=== PATIENT | female | born 1955 | race Hispanic/Latino ===

== ENCOUNTER → 2020-12-11 | Outpatient (CLI) | payer MEDICARE | LOC: MAMMO 13:31 | PROVIDERS: ATTEND Internal Medicine | DX: Z12.31 Encounter for screening mammogram for malignant neoplasm of breast (principal); M81.8 Other osteoporosis without current pathological fracture | CPT/HCPCS: 72050; 77080 ==

== ENCOUNTER → 2022-02-13 | Outpatient (CLI) | payer MEDICARE | LOC: US 10:27 | PROVIDERS: ATTEND Internal Medicine | DX: M43.02 Spondylolysis, cervical region (principal); R22.1 Localized swelling, mass and lump, neck | CPT/HCPCS: 72050; 76536 ==

== ENCOUNTER → 2022-06-29 | Outpatient (CLI) | payer MEDICARE ==
[~2022-06-29] MED LIST: IOPAMIDOL 370 MG/ML 100 ML INFUS..BTL INJ ONE; SODIUM CHLORIDE 0.9% 500ML 500 ML ONE
[2022-06-29 12:47] LABS: CREATININE, SERUM 1.07 mg/dL (0.57-1.11)
== END ==
LOC: CT 11:41
PROVIDERS: ATTEND Internal Medicine
DX: R06.02 Shortness of breath (principal)
CPT/HCPCS: 36415; 71260; 82565; 84520; J7040; Q9967

== ENCOUNTER → 2022-07-16 | Outpatient (CLI) | payer MEDICARE | LOC: MAMMO 10:22 | PROVIDERS: ATTEND Internal Medicine | DX: N63.11 Unspecified lump in the right breast, upper outer quadrant (principal) | CPT/HCPCS: 77066 ==

== ENCOUNTER 2024-04-13 13:56 | Emergency (ER) | payer MEDICARE ==
[~2024-04-13] VITALS: Ht 162.6 cm; Wt 83.0 kg
[2024-04-13 14:43] LABS: BASOPHILS # (AUTO) 0.1 (0.0-0.1); BASOPHILS % 1.5 % (0.0-1.0); EOSINOPHILS # (AUTO) 0.1 (0.0-0.4); HEMATOCRIT 38.1 % (34.2-44.1); HEMOGLOBIN 12.2 g/dL (12.0-16.0); LYMPHOCYTES # (AUTO) 3.5 (1.0-3.2); LYMPHOCYTES % 36.6 % (18.0-39.1); MEAN CORPUSCULAR HEMOGLOBIN 29.6 pg (28-32); MEAN CORPUSCULAR VOLUME 92.5 fL (81-99); MONOCYTES # (AUTO) 1.1 (0.2-0.8); MONOCYTES % 11.8 % (4.4-11.3); NEUTROPHILS # (AUTO) 4.6 (2.1-6.9); NEUTROPHILS % 47.6 % (38.7-80.0); PLATELET COUNT 242 x10e3/uL (140-360); RED BLOOD COUNT 4.12 x10e6/uL (3.6-5.1); RED CELL DISTRIBUTION WIDTH 13.2 % (11.7-14.4)
[2024-04-13] MEDS ORDERED: LEVOTHYROXINE125 MCG (14:51)
[2024-04-13] MEDS ORDERED: ALENDRONATE SOD70 MG (14:51)
[2024-04-13] MEDS ORDERED: ULTRAM 50MG50 MG (14:51)
[2024-04-13] MEDS ORDERED: METFORMIN HCL500 MG (14:51)
[2024-04-13] MEDS ORDERED: LISINOPRIL40 MG (14:51)
[2024-04-13] MEDS ORDERED: CLOPIDOGREL75 MG (14:51)
[2024-04-13] MEDS ORDERED: SERTRALINE HCL100 MG (14:51)
[2024-04-13] MEDS: BENZTROPINE MESYLATE 1 MG/ML VIAL IM ONE (14:56)
[2024-04-13 15:04] LABS: ALBUMIN/GLOBULIN RATIO 1.2 (0.8-2.0); ANION GAP 21.3 mmol/L (8-16); BILIRUBIN,TOTAL 0.6 mg/dL (0.2-1.2); CALCIUM 9.4 mg/dL (8.4-10.2); CREATININE, SERUM 0.92 mg/dL (0.57-1.11); POTASSIUM 3.3 mmol/L (3.5-5.1); TOTAL PROTEIN 7.4 g/dL (6.5-8.1)
[2024-04-13] MEDS: THIAMINE HCL INJ 100 MG/ML 2ML VIAL IM ONE (16:55)
[2024-04-13 19:19] VITALS: PULSE 87; RESP 19; TEMP 98.5
[2024-04-13 19:29] VITALS: BP 133/93; PULSE 87; RESP 19; TEMP 98.5; O2SAT 97
== END 2024-04-13 19:31 | disposition home or self-care (01) ==
LOC: ER 14:00
DX: Z04.3 Encounter for examination and observation following other accident (principal); F10.129 Alcohol abuse with intoxication, unspecified; W01.0XXA Fall on same level from slipping, tripping and stumbling without subsequent striking against object, initial encounter; Y93.01 Activity, walking, marching and hiking; Y92.89 Other specified places as the place of occurrence of the external cause; I10 Essential (primary) hypertension; E11.9 Type 2 diabetes mellitus without complications; E78.5 Hyperlipidemia, unspecified; E03.9 Hypothyroidism, unspecified
CPT/HCPCS: 36415; 70450; 80053; 80320; 85025; 99284; J0515; J3411